=== PATIENT | female | born 1985 | race Two or more races ===

== ENCOUNTER 2020-07-20 15:45 | Emergency (ER) | payer OTHER ==
[~2020-07-20] VITALS: Ht 160 cm; Wt 53.5 kg
--- NOTE | 2020-07-20 15:54 | NUR ---
Dr Klein is at bedside for MSE.
[2020-07-20] MEDS: ONDANSETRON 4 MG/2 ML VIAL IM ONE (16:12)
[2020-07-20] MEDS: KETOROLAC TROMETHAMINE 60 MG INJ IM ONE (16:12)
[2020-07-20] MEDS ORDERED: KETOROLAC TROMETHAMINE 60 MG INJ IM ONE (16:14)
[2020-07-20 16:45] LABS: BASOPHILS % (AUTO) 0.2 % (0.0-2.0); EOSINOPHILS % (AUTO) 0.1 % (0.0-7.0); HEMATOCRIT 38.6 % (31.2-41.9); HEMOGLOBIN 13.1 g/dL (10.9-14.3); LYMPHOCYTES # (AUTO) 1.7 K/uL (20.0-40.0); LYMPHOCYTES % (AUTO) 9.5 % (20.5-51.5); MEAN CORPUSCULAR HGB CONC 34 g/dL (32.3-35.6); MEAN CORPUSCULAR VOLUME 88.8 fL (75.5-95.3); MONOCYTES # (AUTO) 0.7 K/uL (2.0-10.0); NEUTROPHILS # (AUTO) 15.6 K/uL (1.8-8.9); NEUTROPHILS % (AUTO) 86.2 % (38.5-71.5); PLATELET COUNT (AUTO) 363 K/uL (179-408); RED BLOOD CELL COUNT(AUTO) 4.35 MIL/uL (3.63-4.92); WHITE BLOOD COUNT (AUTO) 18.1 K/uL (3.8-11.8)
[2020-07-20 16:54] LABS: CREATININE 0.9 mg/dL (0.6-1.3); POTASSIUM 3.8 mmol/L (3.5-5.1)
[2020-07-20] MEDS ORDERED: CEFTRIAXONE 1 G VIAL ONE (17:03)
[2020-07-20] MEDS ORDERED: LIDOCAINE HCL 1% 20 ML VIAL ONE (17:04)
[2020-07-20] MEDS: CEFTRIAXONE 1 G VIAL IM ONE (17:15)
--- NOTE | 2020-07-20 17:29 | NUR ---
No adverse reactions noted from IM ATb administered to patient. Patient has been cleared for DC by ERMD. Written and verbal after care instructions given. Patient verbalizes understanding of instructions. Stressed follow up or return to ER for worsening s/s. Patient discharged to home in stable condition. Ambulated out of ED in steady gait.
[2020-07-20 17:30] VITALS: BP 120/80
== END 2020-07-20 17:15 | disposition home or self-care (01) ==
LOC: ER 15:48
DX: R51.9 Headache, unspecified (principal); D72.829 Elevated white blood cell count, unspecified
CPT/HCPCS: 36415; 70450; 80048; 85025; 96372 ×2; 99284; J0696; J1885; J3490; A4663